=== PATIENT | female | born 1965 | race Caucasian/White ===

== ENCOUNTER 2018-04-12 12:16 | Outpatient (CLI) | payer BC ==
[2018-04-12 14:05] LABS: #Basophils 0.1 thou/uL (0.0-0.2); #Eosinphils 0.1 thou/uL (0.0-0.7); #Lymphocytes 2.3 thou/uL (1.20-3.40); #Monocytes 0.6 thou/uL (0.11-0.59); #Neutrophils 5.5 thou/uL (1.40-6.50); %Basophils 0.9 % (0.0-1.0); %Eosinophils 1.5 % (0.0-10.0); %Lymphocytes 27.1 % (21.0-51.0); %Monocytes 6.5 % (0.0-10.0); %Neutrophils 64.1 % (42.0-75.0); Hemoglobin 14.5 g/dL (12.0-16.0); Mean Corpuscular Hemoglobin 30.9 pg (27.0-31.0); Mean Platelet Volume 10.8 fL (7.4-10.4); Platelet Count 239 thou/uL (130-400); Red Blood Cell (RBC) Count 4.69 mill/uL (4.20-5.40); White Blood Cell (WBC) Count 8.6 thou/uL (4.8-10.8)
[2018-04-12 14:28] LABS: Anion Gap 13 mmol/L (10-20); BUN (Urea Nitrogen) 15 mg/dL (9.8-20.1); Calc. Creatinine Clearance 0 mL/min (70-130); Calcium 9.6 mg/dL (7.8-10.44); Carbon Dioxide 26 mmol/L (22-29); Chloride 105 mmol/L (98-107); Estimated GFR-MDRD 71; Glucose 98 mg/dL (70-105); Potassium 4.3 mmol/L (3.5-5.1); Sodium 140 mmol/L (136-145)
--- NOTE | 2018-04-13 15:15 | EKG ---
Test Reason : Blood Pressure : / mmHG Vent. Rate : 084 BPM Atrial Rate : 084 BPM P-R Int : 138 ms QRS Dur : 082 ms QT Int : 374 ms P-R-T Axes : 047 037 024 degrees QTc Int : 441 ms Sinus rhythm with occasional Premature ventricular complexes Cannot rule out Anterior infarct , age undetermined Abnormal ECG When compared with ECG of 06-MAR-2017 18:25, Premature ventricular complexes are now Present Confirmed by PARKER JONAS, DAWSON ([id number]) on 04/13/2018 3:15:20 PM Referred By: HUMBLE Confirmed By:DAWSON CANALES MD
== END 2018-04-12 12:17 | disposition home or self-care (01) ==
LOC: LABBT 12:16
PROVIDERS: ATTEND Orthopaedic Surgery
DX: Z01.818 Encounter for other preprocedural examination (principal); S83.242A Other tear of medial meniscus, current injury, left knee, initial encounter
CPT/HCPCS: 80048; 85025; 93005; 93010

== ENCOUNTER 2018-04-13 05:53 | Day surgery (SDC) | payer BC ==
[2018-04-12 12:29] VITALS: BMI 31.4
[2018-04-13] MEDS ORDERED: Bupivacaine HCl 0.5%/Epinephrine 1:200,000/PF 30 ml Vial ONE ×2 (06:49→14:38)
[2018-04-13] MEDS ORDERED: PROPOFOL 20 ML ONE (06:54)
[2018-04-13] MEDS ORDERED: CEFAZOLIN 1 GM VIAL ONE (07:06)
[2018-04-13] MEDS ORDERED: Sodium Chloride 0.9% 0 ML ONE (07:06)
[2018-04-13] MEDS ORDERED: CEFAZOLIN/Water 2 GM/20 ML SYRINGE ONE (07:08)
[2018-04-13] MEDS ORDERED: Fentanyl 100 MCG/2 ML VIAL ONE (07:10)
[2018-04-13] MEDS ORDERED: Morphine 4 MG/ML VIAL ONE (08:56)
[2018-04-13] MEDS ORDERED: Ondansetron ODT 4 MG TAB ONE (09:38)
--- NOTE | 2018-04-13 09:45 | OP ---
DATE OF PROCEDURE: 04/13/2018 PROCEDURE: Left knee arthroscopic partial medial meniscectomy, removal of loose bodies. SURGEON: Madhav Hou M.D. NUCLEAR PHYSICIAN: None. ANESTHESIA: General. BLOOD LOSS: Minimal. NARRATIVE REPORT: Appropriate consent was obtained. The patient was taken to the operating where ge neral anesthesia was induced. Left leg was prepped and draped in usual sterile fashion. Scope was p laced in the lateral portal and probe was placed in medial portal. Findings at surgery were as follo ws: The patellofemoral joint had some synovitis and a few small loose bodies which were removed. Th e lateral compartment was completely free of disease. 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 I performed a partial medial meniscectomy. Two loose bodies were remov ed. The cartilage was debrided down to a stable rim. Meniscus probed and found to be stable. The k nee was irrigated. I looked again for loose bodies and could find no other loose bodies. Sterile dr essings applied. There were no complications.
[2018-04-13] MEDS ORDERED: Lidocaine 2% w/Epinephrine 1:200K 20 ML VIAL ONE (14:38)
[2018-04-13] MEDS ORDERED: Ondansetron HCl/PF 4 MG/2 ML Vial ONE (15:10)
[2018-04-13] MEDS ORDERED: Dexamethasone 20 MG/5 ML VIAL ONE (15:10)
[2018-04-13] MEDS ORDERED: PROPOFOL 200 MG/20 ML VIAL ONE (15:10)
== END 2018-04-13 10:15 | disposition home or self-care (01) ==
LOC: SDC 05:53
PROVIDERS: ATTEND Orthopaedic Surgery
PROC: 0SBD4ZZ Excision of Left Knee Joint, Percutaneous Endoscopic Approach (ICD-10-PCS; principal; 2018-04-13)
PROC: 0SCD4ZZ Extirpation of Matter from Left Knee Joint, Percutaneous Endoscopic Approach (ICD-10-PCS; principal; 2018-04-13)
DX: S83.232A Complex tear of medial meniscus, current injury, left knee, initial encounter (principal); M94.262 Chondromalacia, left knee; M19.90 Unspecified osteoarthritis, unspecified site; Z79.899 Other long term (current) drug therapy
CPT/HCPCS: 96374; G8978-GP-CJ; G8979-GP-CJ; G8980-GP-CJ; J0670; J0690; J1100; J2270; J2405; J2704; J3010; J7050; Q0162

== ENCOUNTER 2019-05-06 12:33 | Outpatient (CLI) | payer BC ==
[2019-05-06 12:57] LABS: #Basophils 0.1 thou/uL (0.0-0.2); #Eosinphils 0.1 thou/uL (0.0-0.7); #Lymphocytes 1.7 thou/uL (1.20-3.40); #Monocytes 0.9 thou/uL (0.11-0.59); #Neutrophils 11.3 thou/uL (1.40-6.50); %Basophils 0.6 % (0.0-1.0); %Eosinophils 0.8 % (0.0-10.0); %Lymphocytes 11.9 % (21.0-51.0); %Monocytes 6.2 % (0.0-10.0); %Neutrophils 80.6 % (42.0-75.0); Hemoglobin 14.3 g/dL (12.0-16.0); Mean Corpuscular HGB CONC 32.6 g/dL (32.0-36.0); Mean Corpuscular Hemoglobin 28.8 pg (27.0-31.0); Mean Corpuscular Volume 88.3 fL (78.0-98.0); Mean Platelet Volume 11.9 fL (7.4-10.4); Platelet Count 272 thou/uL (130-400); RBC Distribution Width 12.3 % (11.5-14.5); Red Blood Cell (RBC) Count 4.95 mill/uL (4.20-5.40)
[2019-05-06 13:13] LABS: ALT (SGPT) 39 U/L (8-55); AST (SGOT) 24 U/L (5-34); Albumin 4.4 g/dL (3.5-5.0); Alkaline Phosphatase 103 U/L (40-150); Anion Gap 16 mmol/L (10-20); BUN (Urea Nitrogen) 11 mg/dL (9.8-20.1); Bilirubin, Total 0.7 mg/dL (0.2-1.2); CRP (Inflammatory) 23.26 mg/dL (= or < 0.5); Calc. Creatinine Clearance 0 mL/min (70-130); Calcium 10.1 mg/dL (7.8-10.44); Carbon Dioxide 23 mmol/L (22-29); Chloride 105 mmol/L (98-107); Estimated GFR-MDRD 77; Globulin 4.2 g/dL (2.4-3.5); Glucose 84 mg/dL (70-105); Potassium 3.8 mmol/L (3.5-5.1); Protein, Total 8.6 g/dL (6.0-8.3); Sodium 140 mmol/L (136-145)
[2019-05-06 13:42] LABS: Free T4 (Free Thyroxine) 0.91 ng/dL (0.70-1.48); Thyroid Stimulating Hormone 7.3247 uIU/mL (0.35-4.94)
--- NOTE | 2019-05-06 14:20 | RAD ---
KUB AND UPRIGHT: HISTORY: Intense abdominal pain x1 week. FINDINGS: The bowel gas pattern appears nonobstructive. No free air. No radiopaque calculi are seen. Postope rative changes of the pelvis are present. IMPRESSION: No acute changes. POS: OFF
== END 2019-05-06 12:34 ==
LOC: SCSRAD 12:33
PROVIDERS: ATTEND Family Medicine
DX: R10.84 Generalized abdominal pain (principal)
CPT/HCPCS: 36415; 74019; 80053; 84439; 84443; 84481; 85025; 86140; 86376; 86800

== ENCOUNTER 2023-05-11 08:49 | Outpatient (CLI) | payer BC ==
[2023-05-11 10:43] LABS: #Basophils 0.1 10x3/uL (0.0-0.2); #Eosinphils 0.1 10x3/uL (0.0-0.5); #Monocytes 0.6 10x3/uL (0.0-1.1); #Neutrophils 5.3 10x3/uL (1.5-8.4); %Basophils 1.1 % (0.0-2.0); %Eosinophils 1.4 % (0.0-6.0); %Lymphocytes 26.1 % (18.0-47.0); %Monocytes 6.8 % (0.0-10.0); %Neutrophils 64.1 % (40.0-75.0); Hemoglobin 14.3 g/dL (12.0-15.5); Mean Corpuscular HGB CONC 31.8 g/dL (32.0-36.0); Mean Corpuscular Hemoglobin 28.2 pg (27.0-33.0); Mean Corpuscular Volume 88.8 fl (81.6-98.3); Mean Platelet Volume 12.9 fl (7.4-10.4); Platelet Count 291 10x3/uL (150-450); RBC Distribution Width 13.8 % (11.5-14.5); Red Blood Cell (RBC) Count 5.07 10x6/uL (3.90-5.03); White Blood Cell (WBC) Count 8.3 10x3/uL (3.5-10.5)
[2023-05-11 11:10] LABS: Anion Gap 13 mmol/L (10-20); BUN (Urea Nitrogen) 15 mg/dL (9.8-20.1); Calc. Creatinine Clearance 0 mL/min (70-130); Calcium 9.7 mg/dL (7.8-10.44); Carbon Dioxide 26 mmol/L (22-29); Chloride 104 mmol/L (98-107); Estimated GFR 82; Glucose 104 mg/dL (70-105); Potassium 4.4 mmol/L (3.5-5.1); Sodium 139 mmol/L (136-145)
[2023-05-11 11:30] LABS: Prothrombin Time 10.4 sec (9.5-12.1)
== END 2023-05-11 08:50 | disposition home or self-care (01) ==
LOC: LABBT 08:49
PROVIDERS: ATTEND Orthopaedic Surgery
DX: Z01.818 Encounter for other preprocedural examination (principal); M17.11 Unilateral primary osteoarthritis, right knee
CPT/HCPCS: 80048; 85025; 85610; 87081; 93005; 93010